=== PATIENT | female | born 1945 | race Caucasian/White ===

== ENCOUNTER 2019-12-28 05:49 | Day surgery (SDC) | payer OTHER ==
[~2019-12-28] VITALS: Ht 162.6 cm; Wt 63.5 kg
[~2019-12-28 05:49] MED LIST: ACTOS 30 MG TAB30 M1 PO; AMARYL2 M1 PO; ASA81BEC PO; CALCIUM 600 +1 EA11 PO; CARVEDILOL12.5 MG PO; CILOSTAZOL 100100 M1 PO; FUROSEMIDE 20 M20 MG PO; IRON18 M1 PO; LIPITOR 20 MG T20 M1 PO; LOSARTAN POTASS50 MG PO; OMEPRAZOLE 20 M20 M1 PO; PROBIOTIC1 EAC7 PO; SERTRALINE HCL100 MG PO; SODIUM BICARBO650 M3 PO; TIROSINT88 MCG PO; VITAMIN D3125 MC1 PO
[2019-12-28 07:00] VITALS: BP 163/51
--- NOTE | 2020-01-01 06:13 | O ---
[facility] [place] [address] OPERATIVE REPORT Name: NELLY NAVA Room #: DEP [facility]#: [id number] Admission: 12/28/19 Attend Phys: Soto Talavera MD Discharge: 12/28/19 Date of : 47 Report #: [id number] THIS REPORT FOR: cc: Carmencita Magallon,Carmencita Rousseau,Soto Higuera MD ~ CC: Dickson Marc DATE OF SERVICE: 12/28/2019 SURGEON: Soto Talavera MD BRIDGE LEVERMAN: None. PREOPERATIVE DIAGNOSIS: Bilateral lower lid ectropion. POSTOPERATIVE DIAGNOSIS: Bilateral lower lid ectropion. OPERATION PERFORMED: Bilateral lower lid ectropion repair. ANESTHESIA: Local with IV sedation. COMPLICATIONS: None. INDICATIONS FOR PROCEDURE: This patient has bilateral acquired lower lid ectropion with chronic tearing, keratopathy and discharge. The current procedures are undertaken in order to improve the patient's visual function, lacrimal outflow, and level of comfort. Informed consent was obtained to include but not limit to the risk of loss of vision, bleeding, infection, scarring, failure to improve the problem and need for further surgery. DESCRIPTION OF OPERATION: The patient was taken to the operating room where 2% Xylocaine with epinephrine mixed with equal parts of 0.75% Marcaine with Wydase was administered transcutaneously and transconjunctivally to each lower lid and lateral canthal area. The patient was then prepped and draped in the usual sterile fashion. A Bakari clamp was then used to clamp the left lateral canthus following which a sharp canthotomy and cantholysis were performed. The tarsal strip was prepared laterally, removing the lash bearing portion of the redundant lid margin and the redundant tarsal plate. Hemostasis was achieved with a monopolar cautery, as it was throughout the case. The tarsal strip was then secured to the internal portion of the lateral orbital tubercle with two interrupted 5-0 Prolene sutures. The lateral canthal angle was sharply reformed as the subcutaneous structures and the skin were closed with multiple [facility] [address] [place] [address] OPERATIVE REPORT Name: NELLY NAVA [id number] Admission: 12/28/19 Attend Phys: Soto Talavera MD Discharge: 12/28/19 Date of : 47 Report #: [id number] interrupted 6-0 plain gut sutures. Attention was then turned to the right side where the same procedure was performed. The wounds were cleaned and dressed with ophthalmic antibiotic ointment. The patient was then transported to the recovery area, having tolerated the procedure well with no anesthetic or operative complications being noted. <ELECTRONICALLY SIGNED> By: Soto Talavera MD 01/01/20 0613 [id number] Soto Talavera MD /nt
== END 2019-12-28 08:20 | disposition home or self-care (01) ==
LOC: OR 05:49 → TBA 05:50 → OR 07:55
DX: H02.105 Unspecified ectropion of left lower eyelid (principal); H02.102 Unspecified ectropion of right lower eyelid; I12.9 Hypertensive chronic kidney disease with stage 1 through stage 4 chronic kidney disease, or unspecified chronic kidney disease; E11.22 Type 2 diabetes mellitus with diabetic chronic kidney disease; N18.4 Chronic kidney disease, stage 4 (severe); E78.00 Pure hypercholesterolemia, unspecified; E03.9 Hypothyroidism, unspecified; K21.9 Gastro-esophageal reflux disease without esophagitis; Z98.890 Other specified postprocedural states; Z79.899 Other long term (current) drug therapy; Z98.41 Cataract extraction status, right eye; Z98.42 Cataract extraction status, left eye; Z88.8 Allergy status to other drugs, medicaments and biological substances; Z79.82 Long term (current) use of aspirin
CPT/HCPCS: 50010; 50101; 50386; 50398; 51636; 56527; 56531; 70005

== ENCOUNTER 2020-02-22 06:33 | Day surgery (SDC) | payer OTHER ==
[~2020-02-22] VITALS: Ht 162.6 cm; Wt 64.9 kg
--- NOTE | ~2020-02-22 | O ---
[facility] [place] [address] OPERATIVE REPORT Name: NELLY NAVA Room #: DEP [facility].#: [id number] Admission: 02/22/20 Attend Phys: Soto Talavera MD Discharge: 02/22/20 Date of : 47 Report #: [id number] THIS REPORT FOR: cc: Carmencita Magallon,Carmencita Rousseau,Soto Higuera MD ~ CC: Dr. Dickson Marc SURGEON: Soto Talavera MD [employer] MEMBER: None. PREOPERATIVE DIAGNOSIS: Bilateral upper lid dermatochalasia with superior visual field defect. POSTOPERATIVE DIAGNOSIS: Bilateral upper lid dermatochalasia with superior visual field defect. OPERATION PERFORMED: Bilateral upper lid functional blepharoplasty. ANESTHESIA: Local with IV sedation. COMPLICATIONS: None. INDICATIONS FOR SURGERY: This patient has acquired upper lid dermatochalasia with superior visual field loss both eyes because of excessive upper lid tissues to include skin and fat. Visual field testing demonstrates dense superior visual defects. Retesting with the upper lid elevated shows an improvement in visual field loss of over 30% and in excess of 12 degrees. The current procedures are undertaken in order to improve the patient's visual function. Informed consent was obtained to include but not limited to the loss of vision, bleeding, infection, scarring, failure to improve the problem and need for further surgery. DESCRIPTION OF OPERATION: The patient was taken to the operating room, where 2% Xylocaine with epinephrine mixed with equal parts of 0.75% Marcaine with Wydase was administered transcutaneously to each upper lid. The patient was then prepped and draped in the usual sterile fashion and a skin-marking pen was then utilized to outline an upper lid crease that was symmetrical on each side. Graefe forceps were then used to quantitate the redundant upper lid skin and it was similarly outlined. The incisions were then made with Lizzie scissors and a skin-muscle flap removed from each side with high-temp cautery. Hemostasis was achieved with the monopolar cautery as it was throughout the case. The [address] [address] OPERATIVE REPORT Name: ELIJAHNELLY J Room #: DEP [facility]#: [id number] Admission: 02/22/20 Attend Phys: Soto Talavera MD Discharge: 02/22/20 Date of : 47 Report #: [id number] orbital septum was then identified and the central and medial fat pads were inspected. The redundant soft tissue was then sculpted with the monopolar cautery. The upper lid crease was then reformed with tightening of the pretarsal orbicularis muscle. The upper lid crease was then further reformed with multiple interrupted 6-0 chromic sutures. The skin was then closed with a running 6-0 plain gut suture. The wound was then cleaned and dressed with ophthalmic antibiotic ointment and a nonstick dressing. The patient was transported to the recovery area, where cold compresses were applied, having tolerated the procedure well with no anesthetic or operative complications being noted. By: 0811 [id number] Soto Talavera MD /nt
[2020-02-22 06:30] VITALS: BP 170/48
== END 2020-02-22 09:03 | disposition home or self-care (01) ==
LOC: OR 06:33 → TBA 06:35 → OR 09:03
DX: H02.834 Dermatochalasis of left upper eyelid (principal); H02.831 Dermatochalasis of right upper eyelid; H53.462 Homonymous bilateral field defects, left side; H53.461 Homonymous bilateral field defects, right side; I12.9 Hypertensive chronic kidney disease with stage 1 through stage 4 chronic kidney disease, or unspecified chronic kidney disease; E11.22 Type 2 diabetes mellitus with diabetic chronic kidney disease; N18.4 Chronic kidney disease, stage 4 (severe); E78.00 Pure hypercholesterolemia, unspecified; E03.9 Hypothyroidism, unspecified; K21.9 Gastro-esophageal reflux disease without esophagitis; Z98.890 Other specified postprocedural states; Z79.899 Other long term (current) drug therapy; Z87.891 Personal history of nicotine dependence; Z98.41 Cataract extraction status, right eye; Z98.42 Cataract extraction status, left eye; Z96.1 Presence of intraocular lens; Z98.51 Tubal ligation status
CPT/HCPCS: 50010; 50101; 50386; 50398; 51636; 56531; 62110; 62850; 70005